=== PATIENT | female | born 1980 | race Caucasian/White ===

== ENCOUNTER 2016-10-21 15:17 | Emergency (ER) | payer OTHER ==
[2016-10-21 15:17] VITALS: BMI 34.7
[2016-10-21 16:02] VITALS: PULSE 74
[2016-10-21] MEDS ORDERED: Sodium Chloride 0.9% 1,000 ML IV STA (17:17)
--- NOTE | 2016-10-21 17:52 | ED PDOC ---
Syncope/Near Syncope/Dizzyness Time Seen by Provider: 10/21/16 16:37 Chief Complaint (Nursing): Syncope Chief Complaint (Provider): Syncope, nausea History Per: Patient History/Exam Limitations: no limitations Onset/Duration Of Symptoms: Days Current Symptoms Are (Timing): Intermittent Episodes Additional Complaint(s): Pt states she was nauseous last night and this morning. Pt states she was in her home and felt lightheaded. Pt states she was with mother and her 1 year old child when she passed out. Pt states according to her mother she did hit her head. PT denies headache. PTs mother states she splashed water on her face and she woke up shortly afer Pt denies feeling SOB or chest pain. Pt states she also is having mild suprapubic discomfort. Pt reports LMP 09/08/16 which was 3-4 days. PT states she had only 1 day of bleeding in September. Past Medical History Reviewed: Historical Data, Nursing Documentation, Vital Signs Vital Signs: Last Vital Signs Temp 98.2 F 10/21/16 16:00 Pulse 74 10/21/16 16:00 Resp 20 10/21/16 16:00 BP 126/76 10/21/16 16:00 Pulse Ox 100 10/21/16 16:00 - Medical History PMH: No Chronic Diseases Denies: Migraine - Surgical History Surgical History: - Family History Family History: States: No Known Family Hx Denies: Stroke - Living Arrangements Living Arrangements: With Family - Social History Current smoker - smoking cessation education provided: No Alcohol: None Drugs: Denies - Home Medications Home Medications: Ambulatory Orders Medication Instructions Recorded Docusate [Colace] 100 mg PO BID #30 cap 06/26/15 Ferrous Sulfate [Feosol] 325 mg PO BID #30 tab 06/26/15 oxyCODONE/Acetaminophen [Percocet 1 tab PO Q4 PRN #30 tab 06/26/15 5/325 mg Tab] Sumatriptan [Imitrex] 25 mg PO PRN PRN #20 cap 06/27/15 Naproxen 500 mg PO BID #20 tab 09/26/16 - Allergies Allergies/Adverse Reactions: Allergies Allergy/AdvReac Type Severity Reaction Status Date / Time No Known Allergies Allergy Verified 10/21/16 15:58 Review of Systems ROS Statement: Except As Marked, All Systems Reviewed And Found Negative Gastrointestinal: Positive for: Vomiting, Abdominal Pain Neurological: Positive for: Other (syncope ) Physical Exam - Reviewed Nursing Documentation Reviewed: Yes Vital Signs Reviewed: Yes - Physical Exam Appears: Positive for: Well, Non-toxic, No Acute Distress Head Exam: Positive for: ATRAUMATIC, NORMAL INSPECTION, NORMOCEPHALIC Skin: Positive for: Normal Color, Warm, DRY Eye Exam: Positive for: Normal appearance ENT: Positive for: Normal ENT Inspection Neck: Positive for: Normal, Painless ROM Cardiovascular/Chest: Positive for: Regular Rate, Rhythm Respiratory: Positive for: Normal Breath Sounds. Negative for: Accessory Muscle Use, Respiratory Distress Gastrointestinal/Abdominal: Positive for: Normal Exam, Bowel Sounds, Soft Back: Positive for: Normal Inspection Extremity: Positive for: Normal ROM Neurologic/Psych: Positive for: Alert, Oriented - Laboratory Results Result Diagrams: 10/21/16 18:07 10/21/16 18:07 - ECG O2 Sat by Pulse Oximetry: 100 Medical Decision Making Medical Decision Making: (+) beta hcg ordered. Endorsed pending beta Hcg, Us reading and type/screen. Disposition - Clinical Impression Clinical Impression: Syncope, - Patient ED Disposition Is Patient to be Admitted: Transfer of Care - Disposition Disposition: Transfer of Care Disposition Time: 19:52 Condition: GOOD
[2016-10-21] MEDS ORDERED: Lactated Ringer's 1,000 ML IV SCH (18:00)
[2016-10-21 18:28] LABS: HEMATOCRIT 34.3 % (34.0-47.0); MEAN CELL VOLUME 79.1 fl (81.0-99.0); MEAN CORPUSCULAR HEMOGLOBIN 25.1 pg (27.0-31.0); MEAN CORPUSCULAR HGB CONC 31.8 g/dL (33.0-37.0); RED CELL DISTRIBUTION WIDTH 16.2 % (11.5-14.5); WHITE BLOOD COUNT 8.7 K/uL (4.8-10.8)
[2016-10-21 18:44] LABS: ALB/GLOB RATIO 1.1 (1.0-2.1); ALKALINE PHOSPHATASE 83 U/L (38-126); ALT/SGPT 32 U/L (9-52); AST/SGOT 26 U/L (14-36); BILIRUBIN,TOTAL 0.4 mg/dl (0.2-1.3); BLOOD UREA NITROGEN 10 mg/dl (7-17); CALCIUM 8.9 mg/dL (8.4-10.2); CARBON DIOXIDE 21 mmol/L (22-30); CHLORIDE 106 mmol/L (98-107); GFR AFRICAN-AMERICAN > 60; GLUCOSE,RANDOM 82 mg/dL (65-105); POTASSIUM 4.2 MMOL/L (3.6-5.0); SODIUM 139 mmol/l (132-148); TOTAL PROTEIN 7.1 G/DL (6.3-8.2)
--- NOTE | 2016-10-21 19:45 | US ---
EXAM: US , Transvaginal CLINICAL HISTORY: 35 years old, female; Pain; Other: Pelvic pain/nausea; Gestational age or lmp: 09/09/16; Additional info: , syncope TECHNIQUE: Real-time transvaginal obstetrical ultrasound of the maternal pelvis and a first trimester with image documentation. Transvaginal imaging was used for better evaluation of the fetus and adnexa. EXAM DATE/TIME: 10/21/2016 5:59 PM COMPARISON: There are no prior studies for comparison. FINDINGS: Gestation: There is a single intrauterine gestation. Gestational sac has mean diameter 18.2 mm. There is no pole. There is no yolk sac. Uterus: Uterus measures approximately 11.2 x 7 x 8.2 cm. Texture of the myometrium is heterogeneous. Cervix measures approximately 5 cm in length. Adnexa: Left ovary measures approximately 2.46 by 2 x 2 0.44 cm.right ovary measures approximately 2.31 x 2.02 x 2.05 cm. There are multiple small follicles in the left ovary. There is flow in both ovaries on Doppler imaging. There is no free fluid. There are no adnexal masses IMPRESSION: Single intrauterine gestation, 6 weeks 2 days by sac size no pole or yolk sac Correlation with serial beta-hCG levels and followup sonography suggested to document development of pole
--- NOTE | 2016-10-21 20:31 | ED PDOC ---
- Laboratory Results Result Diagrams: 10/21/16 18:07 10/21/16 18:07 - ECG O2 Sat by Pulse Oximetry: 100 - Progress ED Course And Treament: case endorsed to consumer loan underwriter pending u/s, beta level. EXAM: US , Transvaginal CLINICAL HISTORY: 35 years old, female; Pain; Other: Pelvic pain/nausea; Gestational age or lmp: 09/09/16; Additional info: , syncope TECHNIQUE: Real-time transvaginal obstetrical ultrasound of the maternal pelvis and a first trimester with image documentation. Transvaginal imaging was used for better evaluation of the fetus and adnexa. EXAM DATE/TIME: 10/21/2016 5:59 PM COMPARISON: There are no prior studies for comparison. FINDINGS: Gestation: There is a single intrauterine gestation. Gestational sac has mean diameter 18.2 mm. There is no pole. There is no yolk sac. Uterus: Uterus measures approximately 11.2 x 7 x 8.2 cm. Texture of the myometrium is heterogeneous. Cervix measures approximately 5 cm in length. Adnexa: Left ovary measures approximately 2.46 by 2 x 2 0.44 cm.right ovary measures approximately 2.31 x 2.02 x 2.05 cm. There are multiple small follicles in the left ovary. There is flow in both ovaries on Doppler imaging. There is no free fluid. There are no adnexal masses IMPRESSION: Single intrauterine gestation, 6 weeks 2 days by sac size no pole or yolk sac Correlation with serial beta-hCG levels and followup sonography suggested to document development of pole On re-eval, patient states she is feeling better. Vitals stable. Case discussed with Dr. Rivera, Ob on-call; recommends outpatient f/up labs/us in 1-2 weeks. Patient educated on findings, advised follow up [facility]. Return to ED for worsening pain/heavy vaginal bleeding, or feeling headache/ dizzy/lightheaded. Disposition - Clinical Impression Clinical Impression: Syncope, Threatened miscarriage - POA Present On Arrival: None - Disposition [facility] Disposition: Routine/Home Disposition Time: 22:14 Condition: IMPROVED Additional Instructions: Follow up at [facility] in one week. Return to ED for worsening pelvic pain, heavy vaginal bleeding, chest pain, shortness of breaht, palpitations, feelings of dizziness/lightheadedness, or other concerning symptoms. Instructions: Threatened Miscarriage (ED), Syncope (ED)
[2016-10-21 22:20] VITALS: BP 124/87; RESP 18; TEMP 98.4; O2SAT 98
--- NOTE | 2016-10-22 20:10 | CARD ---
APPROVED REPORT EKG Measurement Heart [id number] <Conclusion> Normal sinus rhythm Normal ECG
== END 2016-10-21 22:39 | disposition home or self-care (01) ==
LOC: H.ER 15:17
DX: O20.0 Threatened abortion (principal); R55 Syncope and collapse; Z3A.01 Less than 8 weeks gestation of pregnancy

== ENCOUNTER 2018-06-10 13:07 | Emergency (ER) | payer OTHER ==
[2018-06-10 13:07] VITALS: BMI 34.7
[2018-06-10] MEDS ORDERED: Tuberculin 5 Units/0.1 ml Inj ID STA (13:56)
--- NOTE | 2018-06-10 14:27 | ED PDOC ---
HPI: General Adult Time Seen by Provider: 06/10/18 13:24 Chief Complaint (Nursing): Flu-like Symptoms Chief Complaint (Provider): Medical Clearance History Per: Patient History/Exam Limitations: no limitations Have you had recent travel within the past 21 days to any of the following countries: [place], [place], [place] or [place]?: Yes Other Location:: came back last month Current Symptoms Are (Timing): Gone Now Additional Complaint(s): Nilsa Lindsay is a 37 year old female with no past medical history who is sent to the ED from clinic to rule out TB. Patient states that she and her daughter (who is also here to rule out TB) were in [place] for 6 months and just came back last month. She states that last week she had cough and fever but that has since resolved and patient has no medical complaints at this time. PMD: Xiao Griffiths Past Medical History Reviewed: Historical Data, Nursing Documentation, Vital Signs Vital Signs: Last Vital Signs Temp 97 F L 06/10/18 13:17 Pulse 78 06/10/18 13:17 Resp 20 06/10/18 13:17 BP 125/80 06/10/18 13:17 Pulse Ox 100 06/10/18 13:17 - Medical History PMH: No Chronic Diseases Denies: Migraine - Surgical History Surgical History: - Family History Family History: States: No Known Family Hx Denies: Stroke - Social History Current smoker - smoking cessation education provided: No Alcohol: None Drugs: Denies - Home Medications Home Medications: Ambulatory Orders Medication Instructions Recorded Docusate [Colace] 100 mg PO BID #30 cap 06/26/15 Ferrous Sulfate [Feosol] 325 mg PO BID #30 tab 06/26/15 oxyCODONE/Acetaminophen [Percocet 1 tab PO Q4 PRN #30 tab 06/26/15 5/325 mg Tab] Sumatriptan [Imitrex] 25 mg PO PRN PRN #20 cap 06/27/15 Naproxen 500 mg PO BID #20 tab 09/26/16 - Allergies Allergies/Adverse Reactions: Allergies Allergy/AdvReac Type Severity Reaction Status Date / Time No Known Allergies Allergy Verified 10/21/16 15:58 Review of Systems ROS Statement: Except As Marked, All Systems Reviewed And Found Negative Constitutional: Positive for: Other (currently asymptomatic) Physical Exam - Reviewed Nursing Documentation Reviewed: Yes Vital Signs Reviewed: Yes - Physical Exam Appears: Positive for: Well, Non-toxic, No Acute Distress Head Exam: Positive for: ATRAUMATIC, NORMAL INSPECTION, NORMOCEPHALIC Skin: Positive for: Normal Color, Warm, DRY Eye Exam: Positive for: EOMI, Normal appearance, PERRL ENT: Positive for: Normal ENT Inspection Neck: Positive for: Normal, Painless ROM, Supple Cardiovascular/Chest: Positive for: Regular Rate, Rhythm. Negative for: Murmur Respiratory: Positive for: Normal Breath Sounds. Negative for: Wheezing, Respiratory Distress Gastrointestinal/Abdominal: Positive for: Normal Exam, Soft. Negative for: Tenderness Back: Positive for: Normal Inspection Extremity: Positive for: Normal ROM. Negative for: Deformity, Swelling Neurologic/Psych: Positive for: Alert, Oriented. Negative for: Motor/Sensory Deficits - ECG O2 Sat by Pulse Oximetry: 100 (RA) Pulse Ox Interpretation: Normal Medical Decision Making Medical Decision Making: Time: 13:45 Plan: --ED urine --Chest X-Ray --Tubersol 5 tu ID Accession No. 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 TECHNIQUE: Chest PA and lateral FINDINGS: LINES AND TUBES: None. LUNG AND PLEURA: The lungs are well inflated and clear. No pleural effusion or pneumothorax. HEART AND MEDIASTINUM: The heart is not enlarged. No aortic atherosclerotic calcification present. The hilar and mediastinal contours are within normal limits. SKELETAL STRUCTURES: The bony structures are within normal limits for the patient's age. VISUALIZED UPPER ABDOMEN: Normal. OTHER FINDINGS: None. IMPRESSION: No active pulmonary disease. Scribe Attestation: Documented by, Keyana Maier acting as a scribe for Elizabeth Cristina MD. Provider Scribe Attestation: All medical record entries made by the Scribe were at my direction and personally dictated by me. I have reviewed the chart and agree that the record accurately reflects my personal performance of the history, physical exam, medical decision making, and the department course for this patient. I have also personally directed, reviewed, and agree with the discharge instructions and disposition. Disposition - Clinical Impression Clinical Impression: Exposure to TB - Disposition Referrals: [facility] [Outside] Disposition: Routine/Home Disposition Time: 15:08 Condition: STABLE Additional Instructions: FOLLOW-UP WITH CLINIC ON 06/12/18 @ 1:00 PM. Instructions: Tuberculosis, TB Screening Test Forms: [employer] (Azerbaijani)
--- NOTE | 2018-06-10 14:48 | RAD ---
Date of service: 06/10/2018 HISTORY: TB exposure COMPARISON: No prior. TECHNIQUE: Chest PA and lateral FINDINGS: LINES AND TUBES: None. LUNG AND PLEURA: The lungs are well inflated and clear. No pleural effusion or pneumothorax. HEART AND MEDIASTINUM: The heart is not enlarged. No aortic atherosclerotic calcification present. The hilar and mediastinal contours are within normal limits. SKELETAL STRUCTURES: The bony structures are within normal limits for the patient's age. VISUALIZED UPPER ABDOMEN: Normal. OTHER FINDINGS: None. IMPRESSION: No active pulmonary disease.
[2018-06-10 16:13] VITALS: BP 121/78; PULSE 71; RESP 19; TEMP 98.1
[2018-06-13 12:49] VITALS: O2SAT 100
== END 2018-06-10 16:41 | disposition home or self-care (01) ==
LOC: H.ER 13:07
DX: Z20.1 Contact with and (suspected) exposure to tuberculosis (principal)

== ENCOUNTER 2018-08-11 16:38 | Emergency (ER) | payer SELFPAY ==
[2018-08-11 16:38] VITALS: BMI 34.7
[2018-08-11 16:47] VITALS: O2SAT 100
--- NOTE | 2018-08-11 17:38 | ED PDOC ---
HPI: Influenza Time Seen by Provider: 08/11/18 16:49 Chief Complaint: Flu-like Symptoms Chief Complaint (Provider): Flu-like Symptoms History Per: Patient Exam Limitations: no limitations Onset/Duration Of Symptoms: Days (x3) Additional complaint(s):: 37 year old female presents to the ED for evaluation of a fever, body aches, cough, and congestion for the past three days temporarily relieved by Nyquil. Otherwise denies chest pain, shortness of breath, abdominal pain, rash, hemoptysis, nausea, vomiting, diarrhea, sick contacts, and recent travel. Reports having flu vaccine in March PMD: Campos Daly Past Medical History Reviewed: Historical Data, Nursing Documentation, Vital Signs Vital Signs: Last Vital Signs Temp 98.7 F 08/11/18 16:46 Pulse 83 08/11/18 16:46 Resp 16 08/11/18 16:46 BP 138/84 08/11/18 16:46 Pulse Ox 100 08/11/18 16:46 - Medical History PMH: No Chronic Diseases Denies: Migraine - Surgical History Surgical History: (x2) - Family History Family History: States: Unknown Family Hx Denies: Stroke - Social History Current smoker - smoking cessation education provided: No Alcohol: None Drugs: Denies - Home Medications Home Medications: Ambulatory Orders Medication Instructions Recorded Ferrous Sulfate [Feosol] 325 mg PO BID #30 tab 06/26/15 RX: Docusate [Colace] 100 mg PO BID #30 cap 06/26/15 RX: oxyCODONE/Acetaminophen 1 tab PO Q4 PRN #30 tab 06/26/15 [Percocet 5/325 mg Tab] Sumatriptan [Imitrex] 25 mg PO PRN PRN #20 cap 06/27/15 RX: Naproxen 500 mg PO BID #20 tab 09/26/16 Oseltamivir Phosphate [Tamiflu] 75 mg PO BID #9 capsule 08/11/18 - Allergies Allergies/Adverse Reactions: Allergies Allergy/AdvReac Type Severity Reaction Status Date / Time No Known Allergies Allergy Verified 08/11/18 16:44 Review of Systems ROS Statement: Except As Marked, All Systems Reviewed And Found Negative Constitutional: Positive for: Fever, Other (body achess) ENT: Positive for: Nose Congestion Cardiovascular: Negative for: Chest Pain Respiratory: Positive for: Cough. Negative for: Shortness of Breath, Hemoptysis Gastrointestinal: Negative for: Nausea, Vomiting, Abdominal Pain, Diarrhea Skin: Negative for: Rash Physical Exam - Reviewed Nursing Documentation Reviewed: Yes Vital Signs Reviewed: Yes - Physical Exam Appears: Positive for: No Acute Distress Skin: Positive for: Normal Color, Warm, Dry. Negative for: Rash Eye Exam: Positive for: Normal appearance, EOMI, PERRL ENT: Positive for: Normal ENT Inspection Cardiovascular/Chest: Positive for: Regular Rate, Rhythm Respiratory: Positive for: Normal Breath Sounds. Negative for: Respiratory Distress Gastrointestinal/Abdominal: Positive for: Normal Exam, Soft. Negative for: Tenderness Neurologic/Psych: Positive for: Alert, Oriented (x3) Medical Decision Making Medical Decision Making: Time: 1707 Initial Impression: flu-like symptoms Initial Plan: --U-preg --Tamiflu 75mg PO Patients u-preg was positive. She was informed and advised to stop taking Nyquil and motrin and solely take Tylenol 1000mg every four hours for relief of symptoms along with drinking plenty of fluids. Informed that Tamiflu is safe during . Additionally, she denies any vaginal discharge or bleeding. Scribe Attestation: Documented by Merline Shore, acting as a scribe for Frank Sanford PA-C. Provider Scribe Attestation: All medical record entries made by the Scribe were at my direction and personally dictated by me. I have reviewed the chart and agree that the record accurately reflects my personal performance of the history, physical exam, medical decision making, and the department course for this patient. I have also personally directed, reviewed, and agree with the discharge instructions and disposition. - ECG O2 Sat by Pulse Oximetry: 100 (RA) Pulse Ox Interpretation: Normal Disposition - Clinical Impression Clinical Impression: Influenza-like symptoms, - Patient ED Disposition Is Patient to be Admitted: No - Disposition Referrals: [facility] [Outside] [facility]] [facility] [Outside] Disposition: Routine/Home Disposition Time: 17:36 Condition: STABLE Additional Instructions: FOLLOW UP WITH OBGYN OR [facility] FOR FURTHER EVALUATION RETURN TO ED IMMEDIATELY IF SYMPTOMS WORSEN VIRI BARNHART, thank you for letting us take care of you today. Your provider was Sonia Navarro MD and you were treated for FLU LIKE SYMPTOMS. The emergency medical care you received today was directed at your acute symptoms. If you were prescribed any medication, please fill it and take as directed. It may take several days for your symptoms to resolve. Return to the Emergency Department if your symptoms worsen, do not improve, or if you have any other problems. Please contact your doctor or call one of the physicians/clinics you have been referred to that are listed on the Patient Visit Information form that is included in your discharge packet. Bring any paperwork you were given at discharge with you along with any medications you are taking to your follow up visit. Our treatment cannot replace ongoing medical care by a primary care provider outside of the emergency department. Thank you for allowing the [facility] team to be part of your care today. If you had an X-Ray or CT scan: A Radiologist will review the ED reading if any change in treatment is needed we will contact you. If you had a blood, urine, or wound culture: It will take several days for the results, if any change in treatment is needed we will contact you. If you had an STI test: It will take 48 hours for the results. Please call after 1 week if you have not heard back. Prescriptions: Oseltamivir Phosphate [Tamiflu] 75 mg PO BID #9 capsule Instructions: Medications and , Flu, Adult (DC), - The First Month Forms: [employer] (Tanzanian) Print Language: MOSOT[place]
[2018-08-11 18:04] VITALS: BP 129/74; PULSE 88; RESP 20; TEMP 97.8
== END 2018-08-11 17:45 | disposition home or self-care (01) ==
LOC: H.ER 16:38
DX: J11.1 Influenza due to unidentified influenza virus with other respiratory manifestations (principal)

== ENCOUNTER 2018-10-12 17:41 | Inpatient (IN) | payer MEDICAID, SELFPAY ==
[~2018-10-12 17:41] MED LIST: Sodium Chloride 0.9% 1,000 ML IV ONE
[2018-10-12 17:42] VITALS: BMI 34.7
[2018-10-12] MEDS ORDERED: Sodium Chloride 0.9% 1,000 ML IV STA ×2 (17:53→22:03)
[2018-10-12 18:30] LABS: BASO % 0.5 % (0.0-2.0); EOS # 0.2 K/uL (0.0-0.7); HEMOGLOBIN 12.4 g/dL (12.0-16.0); LYMPH # 2.1 K/uL (1.0-4.3); LYMPH % 25.7 % (20.0-40.0); MEAN CELL VOLUME 83.3 fl (81.0-99.0); MEAN CORPUSCULAR HEMOGLOBIN 27.4 pg (27.0-31.0); MEAN CORPUSCULAR HGB CONC 32.9 g/dL (33.0-37.0); MEAN PLATELET VOLUME 8.4 fl (7.2-11.7); MONO # 0.6 K/uL (0.0-0.8); MONO % 7.8 % (0.0-10.0); NEUT # 5.1 K/uL (1.8-7.0); NRBC % 0.1 % (0.0-0.0); RBC 4.53 Mil/uL (3.80-5.20); RED CELL DISTRIBUTION WIDTH 15.6 % (11.5-14.5)
[2018-10-12 18:45] LABS: ALB/GLOB RATIO 1.1 (1.0-2.1); ALBUMIN 3.8 g/dL (3.5-5.0); ALT/SGPT 22 U/L (9-52); AST/SGOT 20 U/L (14-36); BLOOD UREA NITROGEN 7 mg/dl (7-17); CALCIUM 9.3 mg/dL (8.4-10.2); GFR NON-AFRICAN AMERICAN > 60
--- NOTE | 2018-10-12 18:45 | ED PDOC ---
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 Patient denies fever, vomiting, hematuria, dysuria, frequency and incontinence. denies vaginal bleeding or pelvic pain. PMD: [facility] Abnormal Vaginal Bleeding: No : 4 Para: 2 Miscarriage: 1 Past Medical History Reviewed: Historical Data, Nursing Documentation, Vital Signs Vital Signs: Last Vital Signs Temp 98.1 F 10/12/18 17:43 Pulse 67 10/12/18 17:43 Resp 16 10/12/18 17:43 BP 117/74 10/12/18 17:43 Pulse Ox 99 10/12/18 17:43 - Medical History PMH: No Chronic Diseases Denies: Migraine - Surgical History Surgical History: (x2) - Family History Family History: States: Unknown Family Hx Denies: Stroke - Social History Current smoker - smoking cessation education provided: No Alcohol: None Drugs: Denies - Home Medications Home Medications: Ambulatory Orders Medication Instructions Recorded Multivit/Folic Acid/I 1 tab PO DAILY 10/12/18 [ Plus] - Allergies Allergies/Adverse Reactions: Allergies Allergy/AdvReac Type Severity Reaction Status Date / Time No Known Allergies Allergy Verified 08/11/18 16:44 Review of Systems ROS Statement: Except As Marked, All Systems Reviewed And Found Negative Constitutional: Negative for: Fever, Chills Gastrointestinal: Positive for: Abdominal Pain (sudden onset RLQ ) Genitourinary Female: Negative for: Dysuria, Frequency, Incontinence, Hematuria Physical Exam - Reviewed Nursing Documentation Reviewed: Yes Vital Signs Reviewed: Yes - Physical Exam Appears: Positive for: Uncomfortable (writhing in pain; very uncomfortable), In Acute Distress Head Exam: Positive for: ATRAUMATIC, NORMAL INSPECTION, NORMOCEPHALIC Skin: Positive for: Normal Color, Warm, Dry Eye Exam: Positive for: EOMI, Normal appearance, PERRL ENT: Positive for: Normal ENT Inspection Neck: Positive for: Normal, Painless ROM, Supple Cardiovascular/Chest: Positive for: Regular Rate, Rhythm. Negative for: Murmur Respiratory: Positive for: Normal Breath Sounds. Negative for: Respiratory Distress Gastrointestinal/Abdominal: Positive for: Bowel Sounds, Soft, Tenderness (rlq). Negative for: Distended, Guarding, Rebound Back: Positive for: Normal Inspection. Negative for: L CVA Tenderness, R CVA Tenderness Extremity: Positive for: Normal ROM (upper and lower extremities). Negative for: Deformity Neurological/Psych: Positive for: Awake, Alert, Normal Tone, Oriented. Negative for: Motor/Sensory Deficits - Laboratory Results Result Diagrams: 10/13/18 14:15 10/13/18 14:15 - ECG O2 Sat by Pulse Oximetry: 99 (RA) Pulse Ox Interpretation: Normal - Critical Care Total Time (In Min): 30 Medical Decision Making Medical Decision Makin:52 Impression: sudden onset abdominal pain; rule out ectopic , kidney stones, appendicitis Initial Plan: --Blood type and screen --Beta-HCG --CMP --CBC --Morphine 2 mg IV --Zofran 4 mg IV --NS IV 1,000 mls --urine cx --UA --Renal US --RLQ US --Transvaginal US 19:45 while waiting for US to be read, Case referred to surgical dressing maker John who will see patient in the ED. At bedside, awaiting the Us report and he will discuss case with Dr Carey who is surgeon non profit financial controller 20:37 OB US COMMENTS: There is a single intrauterine gestation, variable presentation. The BPD measures 2.6 cm corresponds to a gestational age of 14 weeks 3 days. The AC measures 7.1 cm corresponds to a gestational age of 13 weeks 4 days. The HC measures 9.7 cm corresponds to a gestational age of 14 weeks 3 days. The FL measures 1.3 cm corresponds to a gestational age of 13 weeks 6 days. The composite age is 0 weeks 0 days. heart motion was observed. The heart rate is 142 beats per minute. The placenta is fundal posterior and free of the cervical os. The cervical length is 5.4 cm. No free fluid is seen in the cul-de-sac. Both ovaries are not visualized. IMPRESSION: Single, live, intrauterine gestation with a composite gestational age of 14 weeks 0 days. 20:49 Renal US COMMENTS: The right kidney measures 10.6 x 4 x 3.8 cm and the left kidney measures 11.8 x 4.1 x 4.9 cm. Both kidneys are free of hydronephrosis. There is no evidence of solid or cystic mass. There is no perinephric fluid. There is no renal calculus. The urinary bladder appears within normal limits, without obvious intraluminal stones or masses. Bilateral ureteral jets are visualized. IMPRESSION: Normal study. 21;55 RLQ US FINDINGS: APPENDIX: Images of the right lower quadrant demonstrate a tubular 6.5 x 1.1 x 1.8 cm collection. There appears to be some fluid in the lumen. There is also suggestion of mucosal edema. The possibility of acute appendicitis cannot be excluded. BOWEL: Within normal limits. OTHER: No free fluid or abnormal mass. IMPRESSION: Findings suspicious for acute appendicitis. 22:06 Patient made aware of findings. energy operations vice president made aware. Started on Zosyn 4.5 gm in [address] Carey accepted patient primarily on his service and will operate on patient tonight. He is requesting a OB-digital measurement advisor consult with Dr. Rivera prior to admission. 22:[address] Rivera who agreed to consult and will see patient in the ED prior to surgery. ordered more IV fluids, NPO answered questions to patient at bedside. Scribe Attestation: Documented by Rose Mary Wilson, acting as a scribe for Kimber Hinojosa MD Provider Scribe Attestation: All medical record entries made by the Scribe were at my direction and personally dictated by me. I have reviewed the chart and agree that the record accurately reflects my personal performance of the history, physical exam, medical decision making, and the department course for this patient. I have also personally directed, reviewed, and agree with the discharge instructions and disposition Disposition - Clinical Impression Clinical Impression: Acute appendicitis complicating - Patient ED Disposition Is Patient to be Admitted: Yes Counseled Patient/Family Regarding: Diagnosis - Disposition Disposition Time: 22:06 Condition: STABLE - Pt Status Changed To: Hospital Disposition Of: Inpatient - Admit Certification Admit to Inpatient:: After my assessment, the patient will require hospitalization for at least two midnights. This is because of the severity of symptoms shown, intensity of services needed, and/or the medical risk in this patient being treated as an outpatient.
[2018-10-12 21:30] LABS: SQUAMOUS EPITHIAL 2 /hpf (0-5); URINE BACTERIA MANY (<OCC); URINE BILIRUBIN NEGATIVE (NEGATIVE); URINE BLOOD NEGATIVE (NEGATIVE); URINE CLARITY CLOUDY (Clear); URINE COLOR YELLOW (YELLOW); URINE GLUCOSE (UA) NEG (NEGATIVE); URINE LEUKOCYTE ESTERASE LARGE Leu/uL (Negative); URINE PROTEIN NEGATIVE (NEGATIVE); URINE UROBILINOGEN 0.2-1.0 mg/dL (0.2-1.0)
[2018-10-12] MEDS ORDERED: Piperacillin/Tazobact 4.5 GM in Sodium Chloride 0.9% 100 ML IVPB STA (21:57)
--- NOTE | 2018-10-12 22:11 | CP.PCM.HP ---
<John Gunderson - Last Filed: 10/13/18 01:16> History of Present Illness - History of Present Illness History of Present Illness: History and Physical For General Surgery For Dr. Richard This is a 37F who is 16 weeks she presents with acute onset of RLQ abdominal pain that began at 5pm today. She has never experienced anything like it before. Nothing makes it better, nothing makes it worse. She denies any fevers chills chest pain or SOB. Ultrasound was conducted in the ED which was significant for an acuteappendicitis PMH: Denies PSH: X2 All: NKDA Social: Denies vices Present on Admission - Present on Admission Any Indicators Present on Admission: No Review of Systems - Review of Systems Review of Systems: 12 point review of symptoms conducted and negative aside from abdominal pain Past Patient History - Past Social History Smoking Status: Never Smoked - NEUROLOGICAL Hx Migraine: No - PSYCHIATRIC Hx Substance Use: No - SURGICAL HISTORY Hx Surgeries: Yes Hx Section: Yes (x2) - ANESTHESIA Hx Anesthesia: Yes Hx Anesthesia Reactions: No Meds Allergies/Adverse Reactions: Allergies Allergy/AdvReac Type Severity Reaction Status Date / Time No Known Allergies Allergy Verified 08/11/18 16:44 Physical Exam - Constitutional Appears: Non-toxic, No Acute Distress - Head Exam Head Exam: ATRAUMATIC, NORMOCEPHALIC - Eye Exam Eye Exam: EOMI - ENT Exam ENT Exam: Mucous Membranes Moist - Respiratory Exam Respiratory Exam: NORMAL BREATHING PATTERN - Cardiovascular Exam Cardiovascular Exam: +S1, +S2 - GI/Abdominal Exam GI & Abdominal Exam: Guarding, Rebound, Soft, Tenderness. absent: Distended, Firm, Rigid - Neurological Exam Neurological exam: Alert, Oriented x3 - Psychiatric Exam Psychiatric exam: Normal Affect, Normal Mood - Skin Skin Exam: Dry, Intact Results - Vital Signs Recent Vital Signs: Last Vital Signs Temp 98.1 F 10/12/18 17:43 Pulse 67 10/12/18 17:43 Resp 16 10/12/18 17:43 BP 117/74 10/12/18 17:43 Pulse Ox 99 10/12/18 21:58 - Labs Result Diagrams: 10/12/18 18:21 10/12/18 18:21 Labs: Laboratory Results - last 24 hr 10/12/18 10/12/18 10/12/18 18:21 18:21 21:09 WBC 8.0 RBC 4.53 Hgb 12.4 Hct 37.7 MCV 83.3 MCH 27.4 MCHC 32.9 L RDW 15.6 H Plt Count 250 MPV 8.4 Neut % (Auto) 64.0 Lymph % (Auto) 25.7 [place] % (Auto) 7.8 Eos % (Auto) 2.0 Baso % (Auto) 0.5 Neut # (Auto) 5.1 Lymph # (Auto) 2.1 [place] # (Auto) 0.6 Eos # (Auto) 0.2 Baso # (Auto) 0.0 Sodium 136 Potassium 3.7 Chloride 105 Carbon Dioxide 22 Anion Gap 13 BUN 7 Creatinine 0.4 L Est GFR ( Amer) > 60 Est GFR (Non-Af Amer) > 60 Random Glucose 91 Calcium 9.3 Total Bilirubin 0.2 AST 20 ALT 22 Alkaline Phosphatase 65 Total Protein 7.2 Albumin 3.8 Globulin 3.4 Albumin/Globulin Ratio 1.1 Beta HCG, Quant 72560.00 Urine Color Yellow Urine Clarity Cloudy Urine pH 6.0 Ur Specific [place] 1.012 Urine Protein Negative Urine Glucose (UA) Neg Urine Ketones Negative Urine Blood Negative Urine Nitrate Negative Urine Bilirubin Negative Urine Urobilinogen 0.2-1.0 Ur Leukocyte Esterase Large Urine RBC (Auto) 2 Urine Microscopic WBC 17 H Ur Squamous Epith Cells 2 Urine Bacteria Many H Assessment & Plan - Assessment and Plan (Free Text) Assessment: 37F with acute appendicitis NPO IVF IV ABX OR this evening D/W Dr. Hilary Gunderson PGY3 <Tod Richard N - Last Filed: 10/16/18 10:28> Results - Vital Signs Recent Vital Signs: Last Vital Signs Temp 98.1 F 10/15/18 08:34 Pulse 63 10/15/18 08:34 Resp 20 10/15/18 08:34 BP 103/68 10/15/18 08:34 Pulse Ox 99 10/15/18 08:34 - Labs Result Diagrams: 10/14/18 05:45 10/14/18 05:45 Assessment & Plan - Assessment and Plan (Free Text) Assessment: All medical record entries made by the resident were at my direction. I have reviewed the chart and agree that the record accurately reflects my personal performance of the history, physical exam, medical decision making. I have also personally examined the patient, reviewed, and agree the resident note.
[2018-10-12] MEDS ORDERED: Propofol 10 mg/ml Inj (20 ML) ONE (23:26)
[2018-10-12] MEDS ORDERED: Lidocaine 4% (Laryng-O-Jet) Kit MM ONE (23:26)
[2018-10-12] MEDS ORDERED: Succinylcholine Chloride 20 mg/ml Syr (5 ml) IV ONE (23:26)
[2018-10-12] MEDS ORDERED: Rocuronium 10 mg/ml (5 ml) ONE (23:26)
[2018-10-12] MEDS ORDERED: Lidocaine 1% Inj (20ml) ONE (23:32)
[2018-10-12] MEDS ORDERED: Bupivacaine 0.5% Inj(30mL) ONE (23:32)
[2018-10-12] MEDS: Sodium Chloride 0.9% 1,000 ML IV ONE (23:49)
[2018-10-12] MEDS ORDERED: Lactated Ringer's 1,000 ML IV ONE (23:49)
[2018-10-13] MEDS ORDERED: Phenylephrine 10 mg/ml Inj ONE (00:08)
[2018-10-13] MEDS ORDERED: Dexamethasone 4 mg/1 ml ONE (00:11)
[2018-10-13] MEDS ORDERED: ePHEDrine 50 mg/ml Inj ONE (00:21)
[2018-10-13] MEDS ORDERED: Neostigmine 1:1000 (1 mg/ml) Inj ONE ×2 (00:50→01:10)
[2018-10-13] MEDS ORDERED: Lactated Ringer's 1,000 ML IV ONE (00:55)
[2018-10-13] MEDS: Sodium Chloride 0.9% 500 ML IV ONE (00:55)
[2018-10-13] MEDS ORDERED: Lactated Ringer's 500 ML IV ONE (01:05)
--- NOTE | 2018-10-13 01:21 | PCM.SURG1 ---
Surgeon's Initial Post Op Note - Surgeon's Notes Surgeon: Dr. Richard Quality Measurement Specialist: Dr. Gunderson PGY3 Type of Anesthesia: General Endo Anesthesia Administered By: Dr. Toro Pre-Operative Diagnosis: Acute Appendicitis Operative Findings: See operative dictation Post-Operative Diagnosis: Acute Appendicitus Operation Performed: Laparoscopic Appendectomy Specimen/Specimens Removed: Appendix Estimated Blood Loss: EBL {In ML}: 5 Blood Products Given: N/A Drains Used: No Drains Post-Op Condition: Good Date of Surgery/Procedure: 10/13/18 Time of Surgery/Procedure: 01:20
[2018-10-13] MEDS ORDERED: Oxycodone/Acetaminophen 5/325 mg Tab PO PRN (01:23)
[2018-10-13] MEDS ORDERED: HYDROmorphone 0.5 mg/0.5 ml ISec IVP PRN (01:27)
--- NOTE | 2018-10-13 01:31 | CP.PCM.CON ---
History of Present Illness - History of Present Illness History of Present Illness: Patient is a @ 16 wks gestation, s/p laparoscopic appendectomy for evaluation. Patient was evaluated in PACU immediately after surgery was completed. As per administrative resident, no complications with the procedure. Appendix did not appear ruptured, patient has no signs of sepsis at this time. Patient had spontaneous breathing on RA O2, was lethargic and not verbalizing answers to questions at this time as to the effects of anesthesia. Patient otherwise denies CP, N/V, abdominal pain was tolerable with pain medication, +FHR audible with doppler = 140. Laparscopic incisions clean/dry/intact Past Patient History - Past Medical History & Family History Past Medical History?: No - Past Social History Smoking Status: Never Smoked - NEUROLOGICAL Hx Migraine: No - PSYCHIATRIC Hx Substance Use: No - SURGICAL HISTORY Hx Surgeries: Yes Hx Section: Yes (x2) - ANESTHESIA Hx Anesthesia: Yes Hx Anesthesia Reactions: No Meds Allergies/Adverse Reactions: Allergies Allergy/AdvReac Type Severity Reaction Status Date / Time No Known Allergies Allergy Verified 08/11/18 16:44 Physical Exam - Head Exam Head Exam: ATRAUMATIC - Eye Exam Eye Exam: PERRL - Respiratory Exam Respiratory Exam: Clear to Auscultation Bilateral, NORMAL BREATHING PATTERN - Cardiovascular Exam Cardiovascular Exam: REGULAR RHYTHM - GI/Abdominal Exam GI & Abdominal Exam: Normal Bowel Sounds, Soft Additional comments: obese panus - +FHR = 140 heard by portable doppler, lap incisions clean/dry/intact, no drainage - Extremities Exam Extremities exam: Positive for: normal inspection Results - Vital Signs Recent Vital Signs: Last Vital Signs Temp 98.4 F 10/12/18 23:26 Pulse 86 10/12/18 23:26 Resp 18 10/12/18 23:26 BP 151/86 H 10/12/18 23:26 Pulse Ox 100 10/12/18 23:26 - Labs Result Diagrams: 10/12/18 18:21 10/12/18 18:21 Labs: Laboratory Results - last 24 hr 10/12/18 10/12/18 10/12/18 18:21 18:21 21:09 WBC 8.0 RBC 4.53 Hgb 12.4 Hct 37.7 MCV 83.3 MCH 27.4 MCHC 32.9 L RDW 15.6 H Plt Count 250 MPV 8.4 Neut % (Auto) 64.0 Lymph % (Auto) 25.7 [place] % (Auto) 7.8 Eos % (Auto) 2.0 Baso % (Auto) 0.5 Neut # (Auto) 5.1 Lymph # (Auto) 2.1 [place] # (Auto) 0.6 Eos # (Auto) 0.2 Baso # (Auto) 0.0 Sodium 136 Potassium 3.7 Chloride 105 Carbon Dioxide 22 Anion Gap 13 BUN 7 Creatinine 0.4 L Est GFR ( Amer) > 60 Est GFR (Non-Af Amer) > 60 Random Glucose 91 Calcium 9.3 Total Bilirubin 0.2 AST 20 ALT 22 Alkaline Phosphatase 65 Total Protein 7.2 Albumin 3.8 Globulin 3.4 Albumin/Globulin Ratio 1.1 Beta HCG, Quant 54828.00 Urine Color Yellow Urine Clarity Cloudy Urine pH 6.0 Ur Specific [place] 1.012 Urine Protein Negative Urine Glucose (UA) Neg Urine Ketones Negative Urine Blood Negative Urine Nitrate Negative Urine Bilirubin Negative Urine Urobilinogen 0.2-1.0 Ur Leukocyte Esterase Large Urine RBC (Auto) 2 Urine Microscopic WBC 17 H Ur Squamous Epith Cells 2 Urine Bacteria Many H Assessment & Plan - Assessment and Plan (Free Text) Assessment: A/P 37 yo @ 16 wks s/p laparoscopic appendectomy for evaluation 1. Surgery went well, no signs of rupture or systemic infection. VSS, afebrile. +FHR audible on portable doppler. 2. Patient reassured no issues noted with fetus at this time. As per administrative resident, no antibiotics to be discharged with patient 3. Patient to follow up in clinic for continued care and 1-2 wks with surgical clinic for procedure follow up 4. Pt to be discharged in am as per surgery - Date & Time Date: 10/13/18 Time: 01:30
[2018-10-13] MEDS: Lactated Ringer's 1,000 ML IV SCH ×4 (02:10→22:54)
[2018-10-13] MEDS ORDERED: Piperacillin/Tazobact 3.375 GM in Sodium Chloride 0.9% 100 ML IVPB SCH (06:30)
[2018-10-13] MEDS ORDERED: Benzocaine/Menthol (Cepacol) Lozenge PO PRN (07:47)
--- NOTE | 2018-10-13 09:31 | US ---
Date of service: 10/12/2018 PROCEDURE: Ultrasound of the Kidneys HISTORY: rule out stone COMPARISON: None available. TECHNIQUE: Sonogram of the kidneys. FINDINGS: RIGHT KIDNEY: Measures: 10.6 cm. Normal in size, contour and echogenicity. No stone, solid mass lesion or hydronephrosis visualized. LEFT KIDNEY: Measures: 11.8 cm. Normal in size, contour and echogenicity. No stone, solid mass lesion or hydronephrosis visualized. OTHER FINDINGS: Limited evaluation of the bladder demonstrates no intraluminal mass. Bilateral ureteral jets are demonstrated. IMPRESSION: Unremarkable renal sonogram. The preliminary findings for this examination were reported by [facility] at 8:48 p.m. on 10/12/2018. There is concurrence of this report with the preliminary findings.
--- NOTE | 2018-10-13 10:35 | US ---
Date of service: 10/12/2018 PROCEDURE: Limited obstetrical ultrasound examination HISTORY: 16 wk pelvic pain rule out ectopic COMPARISON: Not available TECHNIQUE: FINDINGS: Transabdominal single live intrauterine gestation. Variable presentation. heart rate is 142 beats per minute. Grossly normal quantity of amniotic fluid. No subchorionic hemorrhage. biometry yields a gestational age of 14 weeks 0 days. The SHIKHA by ultrasound is 04/12/2019. The cervix is closed and measures 5.4 cm in length. IMPRESSION: Limited evaluation. Fourteen weeks 0 day live intrauterine gestation. Cervix closed. Heart rate 142. The preliminary findings for this examination were reported by [facility] at 8:36 p.m. on 10/12/2018. There is concurrence of this report with the preliminary findings.
--- NOTE | 2018-10-13 10:43 | US ---
Date of service: 10/12/2018 PROCEDURE: Limited abdominal ultrasound examination HISTORY: rlq pain COMPARISON: Not available TECHNIQUE: Transabdominal FINDINGS: Limited evaluation of the right lower quadrant was performed utilizing a curved linear array transducer. There is a tubular noncompressible fluid collection identified measuring 10 mm in diameter. However, the examination is technically limited. There is not a high degree of certainty that this represents an appendix. There is no abscess or solid mass identified. IMPRESSION: Limited evaluation. Possible acute appendicitis. The preliminary findings for this examination were reported by [facility] at 9:53 p.m. on 10/12/2018. There is discordance of this report with the preliminary findings. There is a low degree of certainty of the diagnosis of appendicitis on the basis of this examination, given technical limitations.
[2018-10-13] MEDS ORDERED: Lactated Ringer's 500 ML IV SCH ×2 (11:30→14:15)
--- NOTE | 2018-10-13 14:20 | PCM.RRT ---
<Eric Corcoran - Last Filed: 10/13/18 14:46> TRANSMISSION ASSEMBLER Nurse Assessment - Situation TRANSMISSION ASSEMBLER Responder Arrival Time: 02:00 Location: med-surg Room Number: 655-2 TRANSMISSION ASSEMBLER Reason for Call: Hypotension, Change in Mental Status TRANSMISSION ASSEMBLER Called By: RN - IV IV Inserted during TRANSMISSION ASSEMBLER?: No - Respiratory Oxygen Delivery Method: Nasal Cannula Received Nebulizer Treatments: No Was the Patient Ventilated with Bag/Mask 100% O2?: No Secretions Suctioned?: No Was the Patient Intubated?: No Was the Patient Placed on a Ventilator?: No - Diagnostic Test Ordered EKG: No Chest X-Ray: No CT Scan: No CPR started during TRANSMISSION ASSEMBLER?: No - Vital Signs Vital Signs: Rapid Response Vital Sign Blood Pressure 105/73 Pulse Rate 96 Respiratory Rate 20 Temperature 97.3 F Oxygen Saturation 100 - Time TRANSMISSION ASSEMBLER Ended Time TRANSMISSION ASSEMBLER Ended: 13:55 - Vital Signs at end of TRANSMISSION ASSEMBLER Vital Signs at end of TRANSMISSION ASSEMBLER: Rapid Response End Vital Sign Blood Pressure 138/85 Pulse Rate 87 Respiratory Rate 21 Temperature 97.3 F O2 Sat by Pulse Oximetry 100 - Recommendations TRANSMISSION ASSEMBLER Level of Care Recommendations: Remain in current setting I.Reason for TRANSMISSION ASSEMBLER - A) Acute Change in Patient: Subjective: Patient is a 37 yo female 14 wk, s/p appendectomy day 1. TRANSMISSION ASSEMBLER was called due to patient feeling dizzy with bp of in 90s systolic. Medical team arrived. Patient blood pressure was 103/ 73 Hr 96 ox 100%. Patient seemed to be confused, dizzy and nauseas, but did not vomit. Patient report feeling room spinning otherwise everything was wnl. She denied any sob, chest pain, abdominal pain. As per nurse received percocet at 11 am today morning. Patient received 500LR, her blood pressure regulated, her symptoms improved but still dizzy. Patient symptoms most likely due to percocet. Will DC percocet for now and all other medication except for vancomycin. Off Chart: US done earlier and fetus WNL. Intervention 1L Na saline at 125 DC all medication except vancomycin Follow up EKG follow up Labs Surgery and PCP notified, will follow up with patient. Case discussed with doctor Thompson. - Neurological Status (Select all that apply): Alert - Constitutional Appears: Well, Non-toxic, No Acute Distress - Head Head Exam: ATRAUMATIC, NORMAL INSPECTION, NORMOCEPHALIC - Eyes Eye Exam: EOMI, Normal appearance, PERRL - Respiratory Exam Respiratory Exam: Clear to Ausculation Bilateral, NORMAL BREATHING PATTERN - Cardiovascular Exam Cardiovascular Exam: REGULAR RHYTHM, +S1, +S2 - GI/Abdominal Exam GI & Abdominal Exam: Soft - Neurological Exam Neurological Exam: Awake <JayLila Stayc - Last Filed: 10/13/18 17:38> TRANSMISSION ASSEMBLER Nurse Assessment - Vital Signs Vital Signs: Rapid Response Vital Sign Blood Pressure 105/73 Pulse Rate 96 Respiratory Rate 20 Temperature 97.3 F Oxygen Saturation 100 - Vital Signs at end of TRANSMISSION ASSEMBLER Vital Signs at end of TRANSMISSION ASSEMBLER: Rapid Response End Vital Sign Blood Pressure 138/85 Pulse Rate 87 Respiratory Rate 21 Temperature 97.3 F O2 Sat by Pulse Oximetry 100 Attending/Attestation - Attestation I have personally seen and examined this patient.: Yes I have fully participated in the care of the patient.: Yes I have reviewed all pertinent clinical information, including history, physical exam and plan: Yes Notes (Text): TRANSMISSION ASSEMBLER called by RN because of dizziness. Responded to the TRANSMISSION ASSEMBLER with the residents Pt is alert, oriented , moves all extremities complains of dizziness, no Headache, no SOB, no chest pain, mild abd pain She is voiding freely and tolerated PO diet for lunch received Percocet about 2 hrs prior to event , just suddenly felt dizzy BP was 105/73. Pt's BP has been in the 90 systolic since early am ( post op) saturation 99% on Room air HR 80-90s EKG : Sinus rhythm, no ST T changes ? Dizziness prob due to Opiates and poss Hypovolemia - IVF bolus and increase maintenance fluid to 125 ml/hr - will continue to monitor - check CBC, CMP Dr Earle Thompson
[2018-10-13 14:33] LABS: MEAN CELL VOLUME 82.4 fl (81.0-99.0); RBC 3.91 Mil/uL (3.80-5.20); RED CELL DISTRIBUTION WIDTH 15.4 % (11.5-14.5); WHITE BLOOD COUNT 9.3 K/uL (4.8-10.8)
[2018-10-13 14:47] LABS: INR 1.1; PROTHROMBIN TIME 12.6 Seconds (9.8-13.1)
[2018-10-13 14:53] LABS: ALBUMIN 3.1 g/dL (3.5-5.0); ALT/SGPT 17 U/L (9-52); AST/SGOT 14 U/L (14-36); BLOOD UREA NITROGEN 5 mg/dl (7-17); GFR NON-AFRICAN AMERICAN > 60
--- NOTE | 2018-10-13 15:13 | CP.PCM.PN ---
<CheyenneJoss mcintosh - Last Filed: 10/13/18 19:17> Subjective - Date & Time of Evaluation Date of Evaluation: 10/13/18 Time of Evaluation: 17:18 - Subjective Subjective: General Surgery Progress note for Dr. Richard, 37 y/o female patient seen and evaluated at bedside this AM. Patient complained of minimal pain to incision site, however denied nausea or vomiting. No acute overnight events. Patient 16 weeks . Patient was to be discharged if she tolerated diet today [employer] was called on patient due to complaints of dizziness and weakness (13:57). Patient on 1L Na saline at 125, all medications except Vancomycin discontinued at this time, EKG was ordered, and stat labs were ordered. Objective - Vital Signs/Intake and Output Vital Signs (last 24 hours): Temp Pulse Resp BP Pulse Ox 97.9 F 76 20 96/60 L 97 10/13/18 09:00 10/13/18 09:00 10/13/18 09:00 10/13/18 09:00 10/13/18 09:00 Intake and Output: 10/13/18 10/13/18 06:59 18:59 Intake Total 2600 Balance 2600 - Medications Medications: Current Medications Benzocaine/Menthol (Cepacol Sore Throat) 1 daphne PO Q3 PRN PRN Reason: Sore Throat Last Admin: 10/13/18 11:13 Dose: 1 daphne Lactated Ringer's (Lactated Ringer's) 1,000 mls @ 100 mls/hr IV .Q10H LUZ MARINA Last Admin: 10/13/18 11:12 Dose: 100 mls/hr Lactated Ringer's (Lactated Ringer's) 1,000 mls @ 125 mls/hr IV .Q8H LUZ MARINA Piperacillin Sod/Tazobactam (Sod 3.375 gm/ Sodium Chloride) 100 mls @ 100 mls/hr IVPB 0500,1100,1700,2300 LUZ MARINA; Protocol Oxycodone/Acetaminophen (Percocet 5/325 Mg Tab) 1 tab PO Q4 PRN PRN Reason: Pain, moderate (4-7) Stop: 10/16/18 01:24 Last Admin: 10/13/18 11:09 Dose: 1 tab - Labs Labs: 10/13/18 14:15 10/13/18 14:15 PT 12.6 Seconds (9.8-13.1) 10/13/18 14:15 INR 1.1 10/13/18 14:15 - Constitutional Appears: Well, Non-toxic, No Acute Distress - Head Exam Head Exam: ATRAUMATIC, NORMOCEPHALIC - ENT Exam ENT Exam: Mucous Membranes Moist - Respiratory Exam Respiratory Exam: Clear to Ausculation Bilateral, NORMAL BREATHING PATTERN. absent: Accessory Muscle Use, Respiratory Distress - Cardiovascular Exam Cardiovascular Exam: REGULAR RHYTHM, +S1, +S2 - GI/Abdominal Exam GI & Abdominal Exam: Soft, Tenderness, Normal Bowel Sounds. absent: Distended, Firm, Guarding Additional comments: tenderness on palpation to surgical site - Neurological Exam Neurological Exam: Alert, Awake, Oriented x3 - Psychiatric Exam Psychiatric exam: Normal Affect, Normal Mood - Skin Skin Exam: Normal Color Assessment and Plan - Assessment and Plan (Free Text) Assessment: 37 y/o female patient, 16 weeks , seen and evaluated POD1 laparoscopic appendectomy Plan: - Regular Diet - F/U labs every 6 hours - continue IV Abx case discussed with Dr. Roy, PGY1 <Tod Richard - Last Filed: 10/16/18 10:36> Objective - Vital Signs/Intake and Output Vital Signs (last 24 hours): Temp Pulse Resp BP Pulse Ox 98.1 F 63 20 103/68 99 10/15/18 08:34 10/15/18 08:34 10/15/18 08:34 10/15/18 08:34 10/15/18 08:34 - Labs Labs: 10/14/18 05:45 10/14/18 05:45 PT 12.6 Seconds (9.8-13.1) 10/13/18 14:15 INR 1.1 10/13/18 14:15 Assessment and Plan - Assessment and Plan (Free Text) Plan: All medical record entries made by the resident were at my direction. I have reviewed the chart and agree that the record accurately reflects my personal performance of the history, physical exam, medical decision making. I have also personally examined the patient, reviewed, and agree the resident note.
[2018-10-13] MEDS: Piperacillin/Tazobact 3.375 GM in Sodium Chloride 0.9% 100 ML IVPB SCH ×2 (17:28→22:54)
--- NOTE | 2018-10-13 20:18 | CARD ---
APPROVED REPORT Date of service: 10/13/2018 EKG Measurement Heart [id number] <Conclusion> Normal sinus rhythm with sinus arrhythmia Normal ECG
[2018-10-13 20:35] LABS: HEMOGLOBIN 10.3 g/dL (12.0-16.0); MEAN CELL VOLUME 83.6 fl (81.0-99.0); MEAN CORPUSCULAR HEMOGLOBIN 27.7 pg (27.0-31.0); MEAN CORPUSCULAR HGB CONC 33.1 g/dL (33.0-37.0); RBC 3.72 Mil/uL (3.80-5.20); RED CELL DISTRIBUTION WIDTH 15.3 % (11.5-14.5); WHITE BLOOD COUNT 9.7 K/uL (4.8-10.8)
[2018-10-13 20:49] LABS: ALT/SGPT 14 U/L (9-52); AST/SGOT 17 U/L (14-36); BLOOD UREA NITROGEN 7 mg/dl (7-17); GFR NON-AFRICAN AMERICAN > 60
[2018-10-13] MEDS: Lidocaine 5% Patch TD SCH (22:50)
[2018-10-14] MEDS: Lactated Ringer's 1,000 ML IV SCH ×5 (06:00→22:15)
[2018-10-14] MEDS: Piperacillin/Tazobact 3.375 GM in Sodium Chloride 0.9% 100 ML IVPB SCH ×4 (06:18→22:33)
[2018-10-14 06:35] LABS: BASO % 0.2 % (0.0-2.0); EOS # 0.1 K/uL (0.0-0.7); HEMOGLOBIN 10.1 g/dL (12.0-16.0); LYMPH # 2.8 K/uL (1.0-4.3); LYMPH % 29.7 % (20.0-40.0); MEAN CELL VOLUME 83.8 fl (81.0-99.0); MEAN CORPUSCULAR HEMOGLOBIN 27.8 pg (27.0-31.0); MEAN CORPUSCULAR HGB CONC 33.2 g/dL (33.0-37.0); MEAN PLATELET VOLUME 8.7 fl (7.2-11.7); MONO # 0.6 K/uL (0.0-0.8); MONO % 5.9 % (0.0-10.0); NEUT # 5.9 K/uL (1.8-7.0); NEUT % 63.2 % (50.0-75.0); NRBC % 0.1 % (0.0-0.0); RBC 3.62 Mil/uL (3.80-5.20); RED CELL DISTRIBUTION WIDTH 15.8 % (11.5-14.5); WHITE BLOOD COUNT 9.3 K/uL (4.8-10.8)
[2018-10-14 07:42] LABS: BLOOD UREA NITROGEN 7 mg/dl (7-17); CALCIUM 8.1 mg/dL (8.4-10.2); GFR NON-AFRICAN AMERICAN > 60
--- NOTE | 2018-10-14 12:52 | CP.PCM.PN ---
<CheyenneJoss - Last Filed: 10/14/18 15:14> Subjective - Date & Time of Evaluation Date of Evaluation: 10/14/18 Time of Evaluation: 12:50 - Subjective Subjective: General Surgery progress note for Dr. Jackson, 37 y/o female patient seen and evaluated at bedside this AM. Patient complained of minimal pain to incision site, however denies nausea or vomiting. Patient complaining of neck pain along with a sore throat. Patient denies any dizziness at this time, and states she is feeling much better otherwise. No acute overn ight events. Patient 16 weeks . Objective - Vital Signs/Intake and Output Vital Signs (last 24 hours): Temp Pulse Resp BP Pulse Ox 98.4 F 69 20 102/66 98 10/14/18 08:27 10/14/18 08:27 10/14/18 08:27 10/14/18 08:27 10/14/18 08:27 - Medications Medications: Current Medications Acetaminophen (Tylenol 325mg Tab) 650 mg PO Q6 PRN PRN Reason: Pain, Mild (1-3) Last Admin: 10/14/18 01:07 Dose: 650 mg Benzocaine/Menthol (Cepacol Sore Throat) 1 daphne PO Q3 PRN PRN Reason: Sore Throat Last Admin: 10/13/18 11:13 Dose: 1 daphne Lactated Ringer's (Lactated Ringer's) 1,000 mls @ 100 mls/hr IV .Q10H LUZ MARINA Last Admin: 10/14/18 10:33 Dose: 100 mls/hr Lactated Ringer's (Lactated Ringer's) 1,000 mls @ 125 mls/hr IV .Q8H LUZ MARINA Last Admin: 10/14/18 06:00 Dose: Not Given Piperacillin Sod/Tazobactam (Sod 3.375 gm/ Sodium Chloride) 100 mls @ 100 mls/hr IVPB 0500,1100,1700,2300 [facility]; Protocol Last Admin: 10/14/18 10:33 Dose: 100 mls/hr Lidocaine (Lidoderm) 1 ea TD HS LUZ MARINA Last Admin: 10/13/18 22:50 Dose: 1 ea - Labs Labs: 10/14/18 05:45 10/14/18 05:45 PT 12.6 Seconds (9.8-13.1) 03/26/19 14:15 INR 1.1 10/13/18 14:15 - Constitutional Appears: Well, Non-toxic, No Acute Distress - Head Exam Head Exam: ATRAUMATIC, NORMOCEPHALIC - Eye Exam Eye Exam: Normal appearance - ENT Exam ENT Exam: Mucous Membranes Moist - Neck Exam Neck Exam: Tenderness Additional comments: pain with neck range of motion - Respiratory Exam Respiratory Exam: Clear to Ausculation Bilateral. absent: Accessory Muscle Use, Respiratory Distress - Cardiovascular Exam Cardiovascular Exam: REGULAR RHYTHM, +S1, +S2 - GI/Abdominal Exam GI & Abdominal Exam: Soft, Tenderness, Normal Bowel Sounds. absent: Distended, Firm, Guarding Additional comments: tenderness on palpation to the incision sites, and to the right lower quadrant - Neurological Exam Neurological Exam: Alert, Awake, Oriented x3 - Psychiatric Exam Psychiatric exam: Normal Affect, Normal Mood - Skin Skin Exam: Diaphoretic, Warm Assessment and Plan - Assessment and Plan (Free Text) Assessment: 37 y/o female patient, 16 weeks , seen and evaluated POD2 laparoscopic appendectomy Plan: - Regular Diet - Lidoderm patch for neck pain - Continue IV Fluids - Continue IV Abx Case discussed with Dr. Roy, PGY1 <Tod Richard - Last Filed: 10/17/18 09:36> Objective - Vital Signs/Intake and Output Vital Signs (last 24 hours): Temp Pulse Resp BP Pulse Ox 98.1 F 63 20 103/68 99 10/15/18 08:34 10/15/18 08:34 10/15/18 08:34 10/15/18 08:34 10/15/18 08:34 - Labs Labs: 10/14/18 05:45 10/14/18 05:45 PT 12.6 Seconds (9.8-13.1) 10/13/18 14:15 INR 1.1 10/13/18 14:15 Assessment and Plan - Assessment and Plan (Free Text) Plan: All medical record entries made by the resident were at my direction. I have reviewed the chart and agree that the record accurately reflects my personal performance of the history, physical exam, and medical decision making for this patient.
[2018-10-14] MEDS: Lidocaine 5% Patch TD SCH (21:27)
[2018-10-15] MEDS: Lactated Ringer's 1,000 ML IV SCH ×2 (01:00→06:17)
[2018-10-15] MEDS: Piperacillin/Tazobact 3.375 GM in Sodium Chloride 0.9% 100 ML IVPB SCH (04:41)
--- NOTE | 2018-10-15 08:20 | OP ---
PROCEDURE DATE: 10/13/2018 SURGEON: Tod Richard MD SURGEON MIMI: John Gunderson, PGY-3 TYPE OF ANESTHESIA: General endotracheal anesthesia. ANESTHESIA ADMINISTERED BY: Dr. Toro. PREOPERATIVE DIAGNOSIS: Acute appendicitis. POSTOPERATIVE DIAGNOSIS: Acute appendicitis. OPERATION PERFORMED: Laparoscopic appendectomy. SPECIMEN: Appendix. INDICATION: This is a 37-year-old female with no significant past medical history, who is G2. She presents 16 weeks with acute onset of right lower quadrant abdominal pain. Ultrasound in the ED was significant for acute appendicitis. The decision was made to take the patient for a laparoscopic appendectomy. DESCRIPTION OF PROCEDURE: The patient was placed on the operating room table in supine position. Time-out was performed using both preinduction, pre-incision safety checklist to verify correct patient, procedure, and site, with any additional information prior to beginning of the procedure. General endotracheal anesthesia was induced. The abdomen was then prepped and draped in the usual sterile fashion. Incision was made in a skin line just below the umbilicus. The uterus was palpated, was noticed to be significantly below the umbilicus. Decision was made to use the Veress needle with the trajectory in the cephalad direction. The abdomen was then insufflated with carbon dioxide to a pressure of 15 mmHg. The patient tolerated the insufflation well. A 5 mm optical trocar was then inserted into the umbilical port. Under direct visualization, the suprapubic 5 mm port was placed and a left lateral 5 mm port was placed. The appendix was then localized with minor adhesions noted to it at the base of the cecum. The adhesions were taken using a ligature as well as the appendiceal mesentery was also detected using the ligature. There was no bleeding encountered. The appendix was freed up until the middle of the base where it was clearly noted that it was mainly cecum. The left lateral 5 port was then enlarged in order to accommodate Endo KRISTEL stapler through a 12 port. The Endo KRISTEL stapler was then inserted into the port and the appendix was then taken and moved to the left lateral port. The appendiceal stump was then inspected. No bleeding was noted. With insufflation still maintained, the 12 mm port was then removed along with the appendix incised. The nurse reported all counts correct. The fascia was then closed using a 0 Vicryl and UR-6 needle. The abdomen remained insufflated. The camera was inserted. It was noted that there was no bowel or mesentery stuck in the closure. The abdomen was then desufflated. All ports were removed. Skin was closed using 4-0 Monocryl sutures and surgical glue. The patient was then extubated and was taken to PACU in stable condition. Blood loss was minimal. The patient tolerated the procedure well. John Gunderson DO Tod Melo MD MTDClovis
--- NOTE | 2018-10-15 08:24 | CP.PCM.DIS ---
<John Gunderson - Last Filed: 10/15/18 08:20> Provider - Provider Date of Admission: 10/12/18 22:06 Attending physician: Tod Mendoza MD Consults: 10/12/18 22:05 Obgyn [POLYMER SCIENTIST Consult] Stat Comment: Consulting Provider: Chantale Rivera Consulting Physician: Chantale Rivera Reason for Consult: appendicitis, 16 wk 10/12/18 22:27 Surgery [General Surgery Consult] Stat Comment: Consulting Provider: Tod Mendoza Consulting Physician: Tod Mendoza Reason for Consult: appendictis Time Spent in preparation of Discharge (in minutes): 35 Hospital Course - Lab Results Lab Results: Micro Results 10/12/18 22:30 Blood-Venous Blood Culture - Preliminary NO GROWTH AFTER 48 HOURS 10/12/18 22:05 Blood-Venous Blood Culture - Preliminary NO GROWTH AFTER 48 HOURS 10/12/18 21:09 Urine Random Urine Culture - Final No Growth (<1,000 CFU/ML) Most Recent Lab Values WBC 9.3 K/uL (4.8-10.8) 10/14/18 05:45 RBC 3.62 Mil/uL (3.80-5.20) L 10/14/18 05:45 Hgb 10.1 g/dL (12.0-16.0) L 10/14/18 05:45 Hct 30.4 % (34.0-47.0) L 10/14/18 05:45 MCV 83.8 fl (81.0-99.0) 10/14/18 05:45 MCH 27.8 pg (27.0-31.0) 10/14/18 05:45 MCHC 33.2 g/dL (33.0-37.0) 10/14/18 05:45 RDW 15.8 % (11.5-14.5) H 10/14/18 05:45 Plt Count 201 K/uL (130-400) 10/14/18 05:45 MPV 8.7 fl (7.2-11.7) 10/14/18 05:45 Neut % (Auto) 63.2 % (50.0-75.0) 10/14/18 05:45 Lymph % (Auto) 29.7 % (20.0-40.0) 10/14/18 05:45 [place] % (Auto) 5.9 % (0.0-10.0) 10/14/18 05:45 Eos % (Auto) 1.0 % (0.0-4.0) 10/14/18 05:45 Baso % (Auto) 0.2 % (0.0-2.0) 10/14/18 05:45 Neut # (Auto) 5.9 K/uL (1.8-7.0) 10/14/18 05:45 Lymph # (Auto) 2.8 K/uL (1.0-4.3) 10/14/18 05:45 [place] # (Auto) 0.6 K/uL (0.0-0.8) 10/14/18 05:45 Eos # (Auto) 0.1 K/uL (0.0-0.7) 10/14/18 05:45 Baso # (Auto) 0.0 K/uL (0.0-0.2) 10/14/18 05:45 PT 12.6 Seconds (9.8-13.1) 10/13/18 14:15 INR 1.1 10/13/18 14:15 Sodium 133 mmol/l (132-148) 10/14/18 05:45 Potassium 3.9 MMOL/L (3.6-5.0) 10/14/18 05:45 Chloride 107 mmol/L (98-107) 10/14/18 05:45 Carbon Dioxide 21 mmol/L (22-30) L 10/14/18 05:45 Anion Gap 9 (10-20) L 10/14/18 05:45 BUN 7 mg/dl (7-17) 10/14/18 05:45 Creatinine 0.5 mg/dl (0.7-1.2) L 10/14/18 05:45 Est GFR ( Amer) > 60 10/14/18 05:45 Est GFR (Non-Af Amer) > 60 10/14/18 05:45 POC Glucose (mg/dL) 175 mg/dL (65-110) H 10/13/18 13:42 Random Glucose 87 mg/dL (65-105) 10/14/18 05:45 Calcium 8.1 mg/dL (8.4-10.2) L 10/14/18 05:45 Phosphorus 3.8 mg/dl (2.5-4.5) 10/14/18 05:45 Magnesium 1.7 MG/DL (1.6-2.3) 10/14/18 05:45 Total Bilirubin 0.2 mg/dl (0.2-1.3) 10/13/18 20:09 AST 17 U/L (14-36) 10/13/18 20:09 ALT 14 U/L (9-52) 10/13/18 20:09 Alkaline Phosphatase 48 U/L (38-126) 10/13/18 20:09 Total Protein 5.9 G/DL (6.3-8.2) L 10/13/18 20:09 Albumin 3.0 g/dL (3.5-5.0) L 10/13/18 20:09 Globulin 2.9 gm/dL (2.2-3.9) 10/13/18 20:09 Albumin/Globulin Ratio 1.0 (1.0-2.1) 10/13/18 20:09 Beta HCG, Quant 43828.00 mIU/mL 10/12/18 18:21 Urine Color Yellow (YELLOW) 10/12/18 21:09 Urine Clarity Cloudy (Clear) 10/12/18 21:09 Urine pH 6.0 (5.0-8.0) 10/12/18 21:09 Ur Specific [place] 1.012 (1.003-1.030) 10/12/18 21:09 Urine Protein Negative mg/dL (NEGATIVE) 10/12/18 21:09 Urine Glucose (UA) Neg mg/dL (NEGATIVE) 10/12/18 21:09 Urine Ketones Negative mg/dL (NEGATIVE) 10/12/18 21:09 Urine Blood Negative (NEGATIVE) 10/12/18 21:09 Urine Nitrate Negative (NEGATIVE) 10/12/18 21:09 Urine Bilirubin Negative (NEGATIVE) 10/12/18 21:09 Urine Urobilinogen 0.2-1.0 mg/dL (0.2-1.0) 10/12/18 21:09 Ur Leukocyte Esterase Large Radha/uL (Negative) 10/12/18 21:09 Urine RBC (Auto) 2 /hpf (0-3) 10/12/18 21:09 Urine Microscopic WBC 17 /hpf (0-5) H 10/12/18 21:09 Ur Squamous Epith Cells 2 /hpf (0-5) 10/12/18 21:09 Urine Bacteria Many (<OCC) H 10/12/18 21:09 - Hospital Course Hospital Course: Pt was admitted on 10/12/18 with RLQ tenderness and a US significant for an acute appendicitis. On POD1 she had an [employer]ICE [employer] MECH[employer]IC called due to hypotension and syncope. He laboratory workup was benign however she was kefpt for observation. SHe has been ambulating, and tolerating diet. He badominal pain has improved since the surgery and she is clear for d/c. Discharge Exam - Head Exam Head Exam: ATRAUMATIC, NORMOCEPHALIC - Eye Exam Eye Exam: EOMI, Normal appearance - ENT Exam ENT Exam: Mucous Membranes Moist - Respiratory Exam Respiratory Exam: UNREMARKABLE - Cardiovascular Exam Cardiovascular Exam: +S1, +S2 - GI/Abdominal Exam GI & Abdominal Exam: Soft, Tenderness (apropriatly). absent: Distended, Firm, Guarding, Hernia, Rebound, Rigid - Neurological Exam Neurological exam: Alert, Oriented x3 - Psychiatric Exam Psychiatric exam: Normal Affect, Normal Mood - Skin Skin Exam: Dry, Intact Discharge Plan - Follow Up Plan Condition: STABLE Disposition: HOME/ ROUTINE Instructions: Laceration Repair With Glue (DC), Appendectomy, Laparoscopic Surgery (DC), - The Fourth Month, - The Fifth Month Additional Instructions: follow up with dr mendoza ([phone]) and flight steward md 1 week Referrals: Mario Velez MD [Family Provider] - Chantale Rivera MD [Staff Provider] - <Tod Mendoza - Last Filed: 10/18/18 14:34> Provider - Provider Date of Admission: 10/12/18 22:06 Attending physician: Tod Mendoza MD Consults: 10/12/18 22:05 Obgyn [POLYMER SCIENTIST Consult] Stat Comment: Consulting Provider: Chantale Rivera Consulting Physician: Chantale Rivera Reason for Consult: appendicitis, 16 wk 10/12/18 22:27 Surgery [General Surgery Consult] Stat Comment: Consulting Provider: Tod Mendoza Consulting Physician: Tod Mendoza Reason for Consult: appendictis Hospital Course - Lab Results Lab Results: Micro Results 10/12/18 22:30 Blood-Venous Blood Culture - Final NO GROWTH AFTER 5 DAYS 10/12/18 22:30 Blood-Venous Gram Stain - Final TEST NOT PERFORMED 10/12/18 22:05 Blood-Venous Blood Culture - Final NO GROWTH AFTER 5 DAYS 10/12/18 22:05 Blood-Venous Gram Stain - Final TEST NOT PERFORMED 10/12/18 21:09 Urine Random Urine Culture - Final No Growth (<1,000 CFU/ML) Most Recent Lab Values WBC 9.3 K/uL (4.8-10.8) 10/14/18 05:45 RBC 3.62 Mil/uL (3.80-5.20) L 10/14/18 05:45 Hgb 10.1 g/dL (12.0-16.0) L 10/14/18 05:45 Hct 30.4 % (34.0-47.0) L 10/14/18 05:45 MCV 83.8 fl (81.0-99.0) 10/14/18 05:45 MCH 27.8 pg (27.0-31.0) 10/14/18 05:45 MCHC 33.2 g/dL (33.0-37.0) 10/14/18 05:45 RDW 15.8 % (11.5-14.5) H 10/14/18 05:45 Plt Count 201 K/uL (130-400) 10/14/18 05:45 MPV 8.7 fl (7.2-11.7) 10/14/18 05:45 Neut % (Auto) 63.2 % (50.0-75.0) 10/14/18 05:45 Lymph % (Auto) 29.7 % (20.0-40.0) 10/14/18 05:45 [place] % (Auto) 5.9 % (0.0-10.0) 10/14/18 05:45 Eos % (Auto) 1.0 % (0.0-4.0) 10/14/18 05:45 Baso % (Auto) 0.2 % (0.0-2.0) 10/14/18 05:45 Neut # (Auto) 5.9 K/uL (1.8-7.0) 10/14/18 05:45 Lymph # (Auto) 2.8 K/uL (1.0-4.3) 10/14/18 05:45 [place] # (Auto) 0.6 K/uL (0.0-0.8) 10/14/18 05:45 Eos # (Auto) 0.1 K/uL (0.0-0.7) 10/14/18 05:45 Baso # (Auto) 0.0 K/uL (0.0-0.2) 10/14/18 05:45 PT 12.6 Seconds (9.8-13.1) 10/13/18 14:15 INR 1.1 10/13/18 14:15 Sodium 133 mmol/l (132-148) 10/14/18 05:45 Potassium 3.9 MMOL/L (3.6-5.0) 10/14/18 05:45 Chloride 107 mmol/L (98-107) 10/14/18 05:45 Carbon Dioxide 21 mmol/L (22-30) L 10/14/18 05:45 Anion Gap 9 (10-20) L 10/14/18 05:45 BUN 7 mg/dl (7-17) 10/14/18 05:45 Creatinine 0.5 mg/dl (0.7-1.2) L 10/14/18 05:45 Est GFR ( Amer) > 60 10/14/18 05:45 Est GFR (Non-Af Amer) > 60 10/14/18 05:45 POC Glucose (mg/dL) 175 mg/dL (65-110) H 10/13/18 13:42 Random Glucose 87 mg/dL (65-105) 10/14/18 05:45 Calcium 8.1 mg/dL (8.4-10.2) L 10/14/18 05:45 Phosphorus 3.8 mg/dl (2.5-4.5) 10/14/18 05:45 Magnesium 1.7 MG/DL (1.6-2.3) 10/14/18 05:45 Total Bilirubin 0.2 mg/dl (0.2-1.3) 10/13/18 20:09 AST 17 U/L (14-36) 10/13/18 20:09 ALT 14 U/L (9-52) 10/13/18 20:09 Alkaline Phosphatase 48 U/L (38-126) 10/13/18 20:09 Total Protein 5.9 G/DL (6.3-8.2) L 10/13/18 20:09 Albumin 3.0 g/dL (3.5-5.0) L 10/13/18 20:09 Globulin 2.9 gm/dL (2.2-3.9) 10/13/18 20:09 Albumin/Globulin Ratio 1.0 (1.0-2.1) 10/13/18 20:09 Beta HCG, Quant 04849.00 mIU/mL 10/12/18 18:21 Urine Color Yellow (YELLOW) 10/12/18 21:09 Urine Clarity Cloudy (Clear) 10/12/18 21:09 Urine pH 6.0 (5.0-8.0) 10/12/18 21:09 Ur Specific [place] 1.012 (1.003-1.030) 10/12/18 21:09 Urine Protein Negative mg/dL (NEGATIVE) 10/12/18 21:09 Urine Glucose (UA) Neg mg/dL (NEGATIVE) 10/12/18 21:09 Urine Ketones Negative mg/dL (NEGATIVE) 10/12/18 21:09 Urine Blood Negative (NEGATIVE) 10/12/18 21:09 Urine Nitrate Negative (NEGATIVE) 10/12/18 21:09 Urine Bilirubin Negative (NEGATIVE) 10/12/18 21:09 Urine Urobilinogen 0.2-1.0 mg/dL (0.2-1.0) 10/12/18 21:09 Ur Leukocyte Esterase Large Radha/uL (Negative) 10/12/18 21:09 Urine RBC (Auto) 2 /hpf (0-3) 10/12/18 21:09 Urine Microscopic WBC 17 /hpf (0-5) H 10/12/18 21:09 Ur Squamous Epith Cells 2 /hpf (0-5) 10/12/18 21:09 Urine Bacteria Many (<OCC) H 10/12/18 21:09
[2018-10-15 08:35] VITALS: BP 103/68; PULSE 63; RESP 20; TEMP 98.1; O2SAT 99
== END 2018-10-15 10:52 | disposition home or self-care (01) | DRG 952 ==
LOC: H.ER 17:41 → H.ERHOLD 22:06 → H.MEDSURG1 10-13 02:34
PROVIDERS: ADMIT Surgery; ATTEND Surgery
PROC: 0DTJ4ZZ Resection of Appendix, Percutaneous Endoscopic Approach (ICD-10-PCS; principal; 2018-10-12 23:00)
DX: O99.612 Diseases of the digestive system complicating pregnancy, second trimester (principal); K35.80 Unspecified acute appendicitis; Z3A.16 16 weeks gestation of pregnancy; O99.212 Obesity complicating pregnancy, second trimester